=== PATIENT | female | born 1990 | race Hispanic/Latino ===

== ENCOUNTER → 2016-12-07 | Outpatient (CLI) | payer BC ==
[~2016-12-07] MED LIST: AMOX250S5 PO; DEXAINTSOL PO; HYDR-3714 PO; HYDR15SO8 PO; PREN1TAB39; SILV25CR TP; TETRACAINESUCKERS MT
--- NOTE | 2016-12-07 13:41 | Diagnostic Imaging Report ---
PROCEDURE: MRI left joint lower extremity without contrast. TECHNIQUE: Multiplanar, multisequence non contrast-enhanced MRI of the left lower extremity was accomplished. INDICATION: Medial left knee pain. FINDINGS: There is minimal amount of suprapatellar fluid probably physiologic. There is no Benitez's cyst. Extensor mechanism is normal. The ACL and the PCL appear normal. The posterior horn of the medial meniscus demonstrate intrasubstance increased signal that does not appear to extend to the meniscus surface suggestive of myxoid degeneration with no definitive tear. No tear is seen in the lateral meniscus with likely degenerative signal also seen in the posterior horn, less prominent than the medial meniscus. The MCL and lateral collateral ligament complex appear intact. The muscles around the knee have normal signal and bulk. The bone marrow signal is within normal limits. The articular cartilage appears unremarkable. 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 Dictated by: Dictated on workstation # [id number]
== END ==
LOC: RAD 10:04
PROVIDERS: ATTEND Orthopaedic Surgery
DX: M23.8X2 Other internal derangements of left knee (principal)
CPT/HCPCS: 73721

== ENCOUNTER 2017-02-16 08:00 | Outpatient (RCR) | payer BC, OTHER | END 2017-03-20 | disposition home or self-care (01) | PROVIDERS: ATTEND Nurse Practitioner Family | DX: M25.562 Pain in left knee (principal) ==

== ENCOUNTER 2018-01-09 05:40 | Outpatient (CLI) | payer BC ==
[~2018-01-09] VITALS: Ht 160 cm; Wt 63.5 kg
[2018-01-11] MEDS ORDERED: IBUP-1773 PO (12:14)
[2018-01-11] MEDS ORDERED: HYDR-757 PO (12:14)
== END 2018-01-09 10:12 ==
LOC: PREOP 05:40
PROVIDERS: ATTEND Obstetrics & Gynecology
DX: Z01.818 Encounter for other preprocedural examination (principal); D06.9 Carcinoma in situ of cervix, unspecified

== ENCOUNTER 2018-01-11 10:57 | Day surgery (SDC) | payer BC, OTHER ==
[~2018-01-11] VITALS: Ht 160 cm; Wt 63.5 kg
[2018-01-11] MEDS ORDERED: LACTATED RINGERS 1,000 ML IV PRN (11:09)
[2018-01-11 11:15] VITALS: BP 126/71
[2018-01-11] MEDS ORDERED: MIDAZOLAM 2 MG/2 ML (VERSED) VIAL ONE ×2 (11:39→12:26)
[2018-01-11] MEDS ORDERED: MIDAZOLAM 2 MG/2 ML (VERSED) VIAL IM ONE (11:45)
[2018-01-11 11:48] LABS: BASOPHILS % (AUTO) 0 % (0-10); EOSINOPHILS # (AUTO) 0.2 10^3/uL (0.0-0.3); EOSINOPHILS % (AUTO) 3 % (0-10); HEMATOCRIT 39 % (35-52); HEMOGLOBIN 13.2 G/DL (11.5-16.0); LYMPHOCYTES # (AUTO) 2.2 X 10^3 (1.0-4.0); LYMPHOCYTES % (AUTO) 34 % (12-44); MEAN CORPUSCULAR HEMOGLOBIN 28 PG (25-34); MEAN CORPUSCULAR HGB CONC 34 G/DL (32-36); MEAN CORPUSCULAR VOLUME 81 FL (80-99); MEAN PLATELET VOLUME 11.2 FL (7.4-10.4); MONOCYTES # (AUTO) 0.5 X 10^3 (0.0-1.0); MONOCYTES % (AUTO) 7 % (0-12); NEUTROPHILS # (AUTO) 3.6 X 10^3 (1.8-7.8); NEUTROPHILS % (AUTO) 55 % (42-75); PLATELET COUNT 254 10^3/uL (130-400); RED BLOOD COUNT 4.79 10^6/uL (4.35-5.85); WHITE BLOOD COUNT 6.5 10^3/uL (4.3-11.0)
--- NOTE | 2018-01-11 12:10 | Progress Note-Pre Operative ---
Pre-Operative Progress Note H&P Reviewed The H&P was reviewed, patient examined and no changes noted. 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
--- NOTE | 2018-01-11 12:11 | Discharge Inst-Women's Service ---
Discharge Inst-Women's Serv Depart Medication/Instructions New, Converted or Re-Newed RX: RX on Chart Consults/Follow Up Additional Follow Up: Yes Orders/Referrals Dr. Parekh in 2-3 weeks Activity Activity: Activity as Tolerated Driving Instructions: You May Drive (do not drive while taking hydrocodone) NO SMOKING: NO SMOKING Nothing Inside Vagina: No Douching, No [place], No Tampons Diet Discharge Diet: No Restrictions Symptoms to Report to : Bleeding Excessive, Pain Increased, Fever Over 101 Degrees F, Vaginal Bleeding Increase, Questions/Concerns For Any Problems or Questions: Contact Your Physician Skin/Wound Care Bathing Instructions: Shower (x 3 weeks) ELKE PAREKH DO January 11, 2018 12:11 pm
[2018-01-11] MEDS ORDERED: D5 LR IV SOLUTION 1,000 ML IV SCH (12:12)
[2018-01-11] MEDS ORDERED: IBUP-1773 PO (12:14)
[2018-01-11] MEDS ORDERED: HYDR-757 PO (12:14)
[2018-01-11] MEDS ORDERED: KETOROLAC 30 MG/ML VIAL IVP ONE (12:15)
[2018-01-11] MEDS ORDERED: ONDANSETRON 4 MG/2 ML (SDV) Z0FRAN IVP PRN ×3 (12:15→13:45)
[2018-01-11] MEDS ORDERED: proPOfol 200 MG/20 ML (DIPRIVAN) VIAL IV ONE (12:25)
[2018-01-11] MEDS ORDERED: SEVOFLURANE (ULTANE) 15 ML INHAL SOLN ONE (12:25)
[2018-01-11] MEDS ORDERED: ONDANSETRON 4 MG/2 ML (SDV) Z0FRAN ONE (12:25)
[2018-01-11] MEDS ORDERED: LIDOCAINE PF 2% 5 ML (XYLOCAINE) VIAL ONE (12:25)
[2018-01-11] MEDS ORDERED: fentaNYL INJECTION 100 MCG/2 ML AMP ONE (12:25)
[2018-01-11] MEDS ORDERED: DEXAMETHASONE 10 MG/ML (DECADRON) 1 ML VIAL ONE (12:25)
[2018-01-11] MEDS ORDERED: HYDROmorphone 1 MG/ML (DILAUDID) 1 ML SYRINGE IV PRN (12:30)
[2018-01-11] MEDS ORDERED: morphine INJ 10 MG/ML 1ML (SYR OR VIAL) IVP PRN ×2 (12:30→13:45)
[2018-01-11] MEDS ORDERED: MEPERIDINE (DEMEROL) INJ 50 MG/ML IVP PRN ×2 (12:30→13:45)
[2018-01-11] MEDS ORDERED: BUP/EPI 0.5% 1:200,000 (SENSORCAINE) 30 ML VIAL ONE (12:33)
[2018-01-11] MEDS ORDERED: BUPIVACAINE 0.25% 30 ML (SENSORCAINE) VIAL ONE (12:58)
--- NOTE | 2018-01-11 14:18 | Anesthesia-General Post-Op ---
General Patient Condition Mental Status/LOC: Same as Preop Cardiovascular: Satisfactory Nausea/Vomiting: Absent Respiratory: Satisfactory Pain: Controlled Complications: Absent Post Op Complications Complications None Follow Up Care/Instructions Patient Instructions None needed. Anesthesia/Patient Condition Patient Condition Patient is doing well, no complaints, stable vital signs, no apparent adverse anesthesia problems. No complications reported per nursing. [place] [facility] [place]: No ANNIE BOLAÑOS CRNA January 11, 2018 14:18
[2018-01-11 14:20] VITALS: BP 144/88
[2018-01-11 15:20] VITALS: BP 129/85
--- NOTE | 2018-01-11 21:07 | OPERATIVE REPORT ---
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 PROCEDURE: D and C with cold knife conization. SURGEON: Elke Parekh DO ANESTHESIA: General endotracheal. ESTIMATED BLOOD LOSS: Minimal. URINE OUTPUT: 100 mL clear at the start of the procedure. FLUIDS: One liter lactate Ringer solution. FINDINGS: A normal appearing cervix with multiple nabothian cysts, moderate amount of endometrial tissue collected. SPECIMENS SENT: Endometrial curettings and cold knife conization biopsy of the cervix. INDICATION for procedure: This patient is [id number] and [facility] finding of AIS on colposcopic evaluation. She also had some findings of KIM 2, moderate dysplasia. I discussed with the patient my concern with AIS diagnosis is that there can sometimes be skipping lesions occurring within the uterus as well as we need to rule out the possibility of invasive carcinoma. I discussed with her proceeding with a conization biopsy of the cervix as well as a D and C to ensure there was no spread into the endometrium. Risk of this procedure was discussed with the patient in detail including risk of bleeding, infection, damage to surrounding structures including, but not limited to bowel, bladder, ureter, kidneys, risk of postoperative bleeding involved with a conization, risk of postoperative thromboembolic events were all discussed with the patient in detail. After all of her questions were answered, consent was obtained in the preoperative area and the patient was taken to the operating room. OPERATIVE REPORT IN DETAIL: Once in the operating room, general anesthesia was found to be adequate, placed in dorsal lithotomy position, prepped and draped in normal sterile fashion. The bladder was first emptied using straight catheterization. I then placed a weighted speculum into the patient's vagina after a bimanual examination is performed. A right angle retractor was used to visualize the cervix. It was grasped at the 12 o'clock position using a long Allis clamp. I then performed paracervical block at 3 and 9 o'clock positions using 5 mL of 0.25% Marcaine. I injected at each site. Care was taken to aspirate before injecting. After this was done, I then placed a uterine sound into the endometrial cavity, which sounded to approximately 7 cm. I then gently dilated the cervix inheriting the dilators to maximum dilatation of approximately 9 mm, at which point, I performed a gentle curettage with endometrial curettings and collected this curettage as endometrial curettings. I then placed two lateral sutures at 3 and 9 o'clock positions using 2-0 Vicryl suture to help prevent excessive amount of bleeding with the cold knife conization. I then also injected stromal area of the cervix using 0.5% Marcaine with epinephrine to prevent intraoperative bleeding as well. I then soaked the cervix and Lugol solution and removed excess Lugol solution from the vagina. This allowed me to identify the transformation zone. I then took a knife and incised the entire transformation zone within 2 to 3 mm of a margin around the entire transformation zone. The remainder of the cone biopsy was taken using curved Waite scissors taking a large portion of the endocervix as well. Once this was done, the specimens were removed and sent as cervical cone biopsy. I then used ball cautery to cauterize my vascular bed and transection planes. After this was done, I placed Sturmdorf stitches in four quadrants of the cervix using 2-0 Vicryl suture and then I applied Monsel's to the endocervix as well. There was no active bleeding noted from any of my dissection planes after all this was done. The patient tolerated the procedure well and sent to the recovery area in stable condition. Lap and sponge count was correct at the end of the procedure. Instrument count was correct as well. Job ID: [id number] DocumentID: [id number] Dictated Date: 01/11/2018 13:39:13 Photogrammetry Airplane Pilot Date: 01/11/2018 21:07:11 Dictated By: ELKE PAREKH DO
== END 2018-01-11 15:20 | disposition home or self-care (01) ==
LOC: SDC 10:57
PROVIDERS: ATTEND Obstetrics & Gynecology
DX: D06.9 Carcinoma in situ of cervix, unspecified (principal); N88.8 Other specified noninflammatory disorders of cervix uteri
CPT/HCPCS: 36415; 84703; 85025; 86850; 86900; 86901; 87081; 88305; 88307; 88342; 94664

== ENCOUNTER 2018-06-09 21:20 | Emergency (ER) | payer OTHER ==
[~2018-06-09] VITALS: Ht 167.6 cm; Wt 80.7 kg
[~2018-06-09 21:20] MED LIST changes: +HYDR-4226 PO; +IBUP-1773 PO
[2018-06-09 22:14] LABS: BILIRUBIN,URINE NEGATIVE (NEGATIVE); CLARITY,URINE SLIGHTLY CLOUDY; COLOR,URINE RED; GLUCOSE, URINE (UA) NEGATIVE (NEGATIVE); KETONES,URINE NEGATIVE (NEGATIVE); LEUKOCYTE ESTERASE ,URINE 2+ (NEGATIVE); NITRITE,URINE NEGATIVE (NEGATIVE); PH,URINE 7 (5-9); PROTEIN,URINE 2+ (NEGATIVE); UROBILINOGEN,URINE 1 MG/DL (NORMAL)
[2018-06-09 22:21] LABS: RBC,URINE TNTC /HPF
[2018-06-09 22:22] LABS: BACTERIA,URINE TRACE /HPF
[2018-06-09] MEDS ORDERED: NS IV 1000 ML 1,000 ML IV ONE (22:26)
[2018-06-09 22:54] LABS: BASOPHILS % (AUTO) 0 % (0-10); EOSINOPHILS # (AUTO) 0.1 10^3/uL (0.0-0.3); EOSINOPHILS % (AUTO) 1 % (0-10); HEMATOCRIT 36 % (35-52); LYMPHOCYTES # (AUTO) 2.2 X 10^3 (1.0-4.0); LYMPHOCYTES % (AUTO) 21 % (12-44); MEAN CORPUSCULAR HEMOGLOBIN 27 PG (25-34); MEAN CORPUSCULAR HGB CONC 34 G/DL (32-36); MEAN CORPUSCULAR VOLUME 81 FL (80-99); MEAN PLATELET VOLUME 11.2 FL (7.4-10.4); MONOCYTES # (AUTO) 0.9 X 10^3 (0.0-1.0); MONOCYTES % (AUTO) 8 % (0-12); NEUTROPHILS # (AUTO) 7.1 X 10^3 (1.8-7.8); NEUTROPHILS % (AUTO) 70 % (42-75); PLATELET COUNT 219 10^3/uL (130-400); RED CELL DISTRIBUTION WIDTH 14.1 % (10.0-14.5); WHITE BLOOD COUNT 10.2 10^3/uL (4.3-11.0)
[2018-06-09 23:13] LABS: ALANINE AMINOTRANSFERASE 15 U/L (0-55); ALKALINE PHOSPHATASE 42 U/L (40-136); BILIRUBIN,TOTAL 0.9 MG/DL (0.1-1.0); BUN/CREATININE RATIO 9; CALCIUM 9.2 MG/DL (8.5-10.1); CARBON DIOXIDE 21 MMOL/L (21-32); CHLORIDE 109 MMOL/L (98-107); CREATININE SERUM 0.77 MG/DL (0.60-1.30); GFR ESTIMATED > 60; GLUCOSE 105 MG/DL (70-105); LIPASE 6 U/L (8-78); POTASSIUM 3.9 MMOL/L (3.6-5.0); SODIUM 140 MMOL/L (135-145); TOTAL PROTEIN 7.1 GM/DL (6.4-8.2)
--- NOTE | 2018-06-10 01:04 | ED Abdominal Pain ---
General Chief Complaint: Abdominal/GI Problems Stated Complaint: PAIN RT SIDE OF ABD FOR 24 HOURS,VOMITTING Nursing Triage Note: abdominal pain, n/v Sepsis Screen: Possible Sepsis Risk Source of Information: Patient Exam Limitations: No Limitations History of Present Illness Date Seen by Provider: Jun 09, 2018 Time Seen by Provider: 21:23 Initial Comments This 28 year old young lady presents to the ER by private vehicle with concerns about intense right sided abdominal pain that started last night. Her pain is generalized but more prominent on the right side. She reports she has difficulty standing straight due to pain. It does hurt to walk. She denies fever but has had chills. Her last menstrual period is now. She had vomiting and diarrhea last night. Now she feels constipated. Her last solid intake was at 11:00. Her last water was at 20:00. She feels like she wants to cough but holds his back because of pain. Allergies and Home Medications Allergies Coded Allergies: No Known Drug Allergies (Unverified , 04/14/09) Home Medications Hydrocodone/Acetaminophen 1 Each Tablet, 1-2 TAB PO Q4H PRN for PAIN-MODERATE Prescribed by: ELKE PAREKH on 01/11/18 1214 Ibuprofen 600 Mg Tablet, 600 MG PO Q6H Prescribed by: ELKE PAREKH on 01/11/18 1214 Patient Home Medication List Home Medication List Reviewed: Yes Review of Systems Review of Systems Constitutional: see HPI EENTM: No Symptoms Reported Respiratory: See HPI Cardiovascular: No Symptoms Reported Gastrointestinal: See HPI Genitourinary: No Symptoms Reported Musculoskeletal: no symptoms reported Skin: no symptoms reported Psychiatric/Neurological: No Symptoms Reported Endocrine: No Symptoms Reported Hematologic/Lymphatic: No Symptoms Reported Past Isoxslr-Ysrsbz-Pzwpvm Hx Patient Social History Alcohol Use: Occasionally Uses Recreational Drug Use: No Smoking Status: Never a Smoker 2nd Hand Smoke Exposure: No Recent Foreign Travel: No Contact w/Someone Who Travel: No Recent Infectious Disease Expo: No Recent Hopitalizations: No Immunizations Up To Date Tetanus Booster (TDap): Unknown PED Vaccines UTD: No Seasonal Allergies Seasonal Allergies: No Past Medical History Surgeries: Yes (ovarian surgery) Tonsillectomy Respiratory: No Cardiac: No Neurological: No : No Last Menstrual Period: Jun 09, 2018 Reproductive Disorders: Yes (AIS of cervix) Genitourinary: No Gastrointestinal: No Musculoskeletal: No Endocrine: No HEENT: No Tonsilitis Cancer: No Psychosocial: No Integumentary: No Blood Disorders: No Adverse Reaction/Blood Tranf: No Family Medical History No Pertinent Family Hx Physical Exam Vital Signs Vital Signs - First Documented 06/09/18 21:50 Temp 101.0 Pulse 95 Resp 18 B/P (MAP) 132/65 (87) Pulse Ox 98 O2 Delivery Room Air Capillary Refill : Less Than 3 Seconds Height/Weight/BMI Height: 5'6.00" Weight: 178lbs. 0.0oz. [id number]; 24.8 BMI Method:Stated General Appearance: WD/WN, mild distress HEENT: normal ENT inspection, pharynx normal Neck: normal inspection Respiratory: lungs clear, normal breath sounds, no respiratory distress, no accessory muscle use Cardiovascular: regular rate, rhythm, no edema, no murmur Gastrointestinal: soft, abnormal bowel sounds (decreased), tenderness ( generalized but more prominent on the right), other (negative psoas. Positive tenderness to percussion. Negative Rovsing) Extremities: normal inspection, no pedal edema Neurologic/Psychiatric: regional forester II-XII nml as tested, no motor/sensory deficits, alert, normal mood/affect, oriented x 3 Skin: normal color, warm/dry Progress/Results/Core Measures Results/Orders Lab Results Laboratory Tests Test 06/09/18 22:00 06/09/18 22:45 Range/Units Urine Color RED H Urine Clarity SLIGHTLY CLOUDY Urine pH 7 5-9 Urine Specific Ulysses 1.010 L 1.016-1.022 Urine Protein 2+ H NEGATIVE Urine Glucose (UA) NEGATIVE NEGATIVE Urine Ketones NEGATIVE NEGATIVE Urine Nitrite NEGATIVE NEGATIVE Urine Bilirubin NEGATIVE NEGATIVE Urine Urobilinogen 1 NORMAL MG/DL Urine Leukocyte Esterase 2+ H NEGATIVE Urine RBC (Auto) 5+ H NEGATIVE Urine RBC TNTC H /HPF Urine WBC 2-5 /HPF Urine Squamous Epithelial Cells 2-5 /HPF Urine Crystals NONE /LPF Urine Bacteria TRACE /HPF Urine Casts NONE /LPF Urine Mucus NEGATIVE /LPF Urine Culture Indicated NO White Blood Count 10.2 4.3-11.0 10^3/uL Red Blood Count 4.40 4.35-5.85 10^6/uL Hemoglobin 12.0 11.5-16.0 G/DL Hematocrit 36 35-52 % Mean Corpuscular Volume 81 80-99 FL Mean Corpuscular Hemoglobin 27 25-34 PG Mean Corpuscular Hemoglobin Concent 34 32-36 G/DL Red Cell Distribution Width 14.1 10.0-14.5 % Platelet Count 219 130-400 10^3/uL Mean Platelet Volume 11.2 H 7.4-10.4 FL Neutrophils (%) (Auto) 70 42-75 % Lymphocytes (%) (Auto) 21 12-44 % Monocytes (%) (Auto) 8 0-12 % Eosinophils (%) (Auto) 1 0-10 % Basophils (%) (Auto) 0 0-10 % Neutrophils # (Auto) 7.1 1.8-7.8 X 10^3 Lymphocytes # (Auto) 2.2 1.0-4.0 X 10^3 Monocytes # (Auto) 0.9 0.0-1.0 X 10^3 Eosinophils # (Auto) 0.1 0.0-0.3 10^3/uL Basophils # (Auto) 0.0 0.0-0.1 10^3/uL Sodium Level 140 135-145 MMOL/L Potassium Level 3.9 3.6-5.0 MMOL/L Chloride Level 109 H 98-107 MMOL/L Carbon Dioxide Level 21 21-32 MMOL/L Anion Gap 10 5-14 MMOL/L Blood Urea Nitrogen 7 7-18 MG/DL Creatinine 0.77 0.60-1.30 MG/DL Estimat Glomerular Filtration Rate > 60 BUN/Creatinine Ratio 9 Glucose Level 105 70-105 MG/DL Calcium Level 9.2 8.5-10.1 MG/DL Corrected Calcium 9.2 8.5-10.1 MG/DL Total Bilirubin 0.9 0.1-1.0 MG/DL Aspartate Amino Transf (AST/SGOT) 12 5-34 U/L Alanine Aminotransferase (ALT/SGPT) 15 0-55 U/L Alkaline Phosphatase 42 40-136 U/L Total Protein 7.1 6.4-8.2 GM/DL Albumin 4.0 3.2-4.5 GM/DL Lipase 6 L 8-78 U/L Serum Test, Qualitative NEGATIVE NEGATIVE My Orders Orders - HANY COLVIN MD Ua Culture If Indicated (06/09/18 21:23) Cbc With Automated Diff (06/09/18 22:26) Comprehensive Metabolic Panel (06/09/18 22:26) Hcg,Qualitative Serum (06/09/18 22:26) Lipase (06/09/18 22:26) Saline Lock/Iv-Start (06/09/18 22:26) Ns Iv 1000 Ml (Sodium Chloride 0.9%) (06/09/18 22:26) Ct Abd/Pelv W (Appendicitis) (06/09/18 23:15) Ketorolac Injection (Toradol Injection) (06/10/18 01:15) Medications Given in ED Vital Signs/I&O 06/09/18 06/10/18 21:50 01:15 Temp 101.0 98.9 Pulse 95 88 Resp 18 16 B/P (MAP) 132/65 (87) 130/62 (84) Pulse Ox 98 99 O2 Delivery Room Air Room Air Blood Pressure Mean: 87 Progress Progress Note : Progress Note Patient initially declined pain medication. After review of labs we discussed further options for workup. I discussed the risks and benefits of CT imaging including the risk of radiation exposure and contrast allergy. Patient and I were both concerned about possible appendicitis. After explanation of risks and benefits patient elected to proceed with CT imaging. CT revealed no appendicitis. She did have a prominent structure consistent with ovarian cyst on the right. Fever resolved without treatment. Patient was felt to most likely have a viral illness given the vomiting and diarrhea yesterday. Patient was hydrated, given Toradol, and dismissed with return precautions. Departure Impression Primary Impression: Right lower quadrant pain Additional Impressions: Right ovarian cyst Fever Qualified Codes: R50.9 - Fever, unspecified Nausea & vomiting Qualified Codes: R11.2 - Nausea with vomiting, unspecified Disposition: 01 HOME, SELF-CARE Condition: Improved Admissions Decision to Admit Reason: Admit from ER (General) Departure-Patient Inst. Decision time for Depature: 01:00 Referrals: NAVIN FLORES DO (PCP) Primary Care Physician Patient Instructions: Acute Abdomen (Belly Pain), Adult (DC), Ovarian Cyst (DC) Add. Discharge Instructions: Drink plenty of clear liquids. Gradually advance your diet as tolerated. You may take ibuprofen up to 600 mg every 6 hours as needed for pain. Add Tylenol (acetaminophen) up to 1000 mg every 6 hours as needed for additional pain relief. Return to care if you have worsening symptoms. All discharge instructions reviewed with patient and/or family. Voiced understanding. HANY COLVIN MD Jun 10, 2018 01:04
[2018-06-10 01:15] VITALS: BP 130/62
[2018-06-10] MEDS ORDERED: KETOROLAC 30 MG/ML VIAL IVP ONE (01:15)
--- NOTE | 2018-06-10 07:09 | Diagnostic Imaging Report ---
PROCEDURE: CT abdomen and pelvis with contrast, rule out appendicitis. TECHNIQUE: Multiple contiguous axial images were obtained through the abdomen and pelvis after the administration of intravenous contrast. INDICATION: Right abdominal pain No focal hepatic or splenic lesion is identified. Gallbladder, pancreas and adrenal glands are unremarkable. No renal abnormality is seen. There are mildly prominent lymph nodes in the mesentery. These are most pronounced in the right lower quadrant. Appendix is unremarkable in its appearance. Partially opacified urinary bladder has a normal appearance. There appears to be cystic enlargement of the ovaries greater on the right. Right ovary and cyst in aggregate measure approximately 5.4 x 4.1 cm. No significant free fluid is identified and there is no evidence of organized fluid collection. There may be mild edema and/or inflammation in the lower abdominal mesenteric fat. IMPRESSION: Cystic enlargement of the ovaries, greater on the right. This may contribute to patient's symptoms and consideration could be given to pelvic ultrasonography. Component of pelvic inflammatory disease is not excluded. Mildly prominent mesenteric lymph nodes may reflect adenitis. Dictated by: Dictated on workstation # [id number]
== END 2018-06-10 01:15 | disposition home or self-care (01) ==
LOC: EDUNIT# 21:20 → ER 21:22
DX: N83.202 Unspecified ovarian cyst, left side (principal); R11.2 Nausea with vomiting, unspecified; Z90.89 Acquired absence of other organs
CPT/HCPCS: 36415; 74177; 80053; 81000; 83690; 84703; 85025

== ENCOUNTER 2019-06-27 19:34 | Emergency (ER) | payer OTHER ==
[~2019-06-27] VITALS: Ht 170 cm; Wt 71.8 kg
[2019-06-27] MEDS ORDERED: diphenhydrAMINE 50 MG/ML INJ (BENADRYL) IVP ONE (19:45)
[2019-06-27] MEDS ORDERED: methylPREDNISolone 125 MG (Solu-MEDROL) VIAL IVP ONE (19:45)
[2019-06-27] MEDS ORDERED: FAMOTIDINE 20MG/2ML IV (PEPCID) IVP ONE (19:45)
--- NOTE | 2019-06-27 19:54 | ED Integumentary General ---
General Chief Complaint: Allergic Reaction Stated Complaint: HIVES Source: patient Exam Limitations: no limitations History of Present Illness Date Seen by Provider: Jun 27, 2019 Time Seen by Provider: 19:50 Initial Comments To ER with reports of itchy hives that she awakened with this morning. 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 She works for [employer] and was seen by their walk-in clinic this afternoon, was given a shot of something, she is not sure what. In addition she's been taking Benadryl one tablet every 4 hours most recently one hour ago and a prescription for prednisone 40 mg daily for 3 days. Timing/Duration: constant Severity: moderate Location: generalized Possible Cause: no cause identified Associated Symptoms: rash Allergies and Home Medications Allergies Coded Allergies: No Known Drug Allergies (Unverified , 04/14/09) Home Medications Hydrocodone/Acetaminophen 1 Each Tablet, 1-2 TAB PO Q4H PRN for PAIN-MODERATE Prescribed by: ELKE PAREKH on 01/11/18 1214 Ibuprofen 600 Mg Tablet, 600 MG PO Q6H Prescribed by: ELKE PAREKH on 01/11/18 1214 Patient Home Medication List Home Medication List Reviewed: Yes Review of Systems Review of Systems Constitutional: see HPI EENTM: see HPI Respiratory: no symptoms reported Cardiovascular: no symptoms reported Genitourinary: no symptoms reported Musculoskeletal: no symptoms reported Skin: see HPI Psychiatric/Neurological: No Symptoms Reported Endocrine: No Symptoms Reported Past [id number]-Hgdonf-Awkodt Hx Patient Social History 2nd Hand Smoke Exposure: No Recent Foreign Travel: No Contact w/Someone Who Travel: No Recent Hopitalizations: No Immunizations Up To Date Tetanus Booster (TDap): Unknown PED Vaccines UTD: No Seasonal Allergies Seasonal Allergies: No Past Medical History Surgeries: Yes (ovarian surgery) Tonsillectomy Respiratory: No Cardiac: No Neurological: No Reproductive Disorders: Yes (AIS of cervix) Genitourinary: No Gastrointestinal: No Musculoskeletal: No Endocrine: No HEENT: No Tonsilitis Cancer: No Psychosocial: No Integumentary: No Blood Disorders: No Adverse Reaction/Blood Tranf: No Family Medical History No Pertinent Family Hx Physical Exam Vital Signs Capillary Refill : General Appearance: WD/WN, no apparent distress HEENT: PERRL/EOMI, normal ENT inspection Gastrointestinal: normal bowel sounds, non tender, soft Neurologic/Psychiatric: alert, normal mood/affect, oriented x 3 Skin: normal color, warm/dry Skin Problem Location: other (minor urticarial type rash/wheals to the torso and extremities, these areas are small, quarter-sized) Skin Problem Character: urticarial Progress/Results/Core Measures Results/Orders My Orders Orders - ASHANTI CAMPBELL APRN Methylprednisolone Sod Succ (Solu-Medrol (06/27/19 19:45) Diphenhydramine Injection (Benadryl Inje (06/27/19 19:45) Famotidine Injection (Pepcid Injection) (06/27/19 19:45) Ed Iv/Invasive Line Start (06/27/19 19:43) Medications Given in ED Current Medications Medications Dose Ordered Sig/Juan Carlos Route Start Time Stop Time Status Last Admin Dose Admin Diphenhydramine HCl 25 mg ONCE ONCE IVP 06/27/19 19:45 06/27/19 19:46 DC 06/27/19 19:47 25 MG Famotidine 20 mg ONCE ONCE IVP 06/27/19 19:45 06/27/19 19:46 DC 06/27/19 19:47 20 MG Methylprednisolone Sodium Succinate 125 mg ONCE ONCE IVP 06/27/19 19:45 06/27/19 19:46 DC 06/27/19 19:47 125 MG Departure Impression Primary Impression: Urticaria Disposition: 01 HOME, SELF-CARE Condition: Stable Departure-Patient Inst. Decision time for Depature: 19:54 Referrals: NO,LOCAL PHYSICIAN (PCP/Family) Primary Care Physician Patient Instructions: ASHANTI Murcia DC, APRN Jun 27, 2019 19:54 POS
[2019-06-27 20:32] VITALS: BP 149/79
== END 2019-06-27 20:39 | disposition home or self-care (01) ==
LOC: EDUNIT# 19:34 → ER 19:35
DX: L50.9 Urticaria, unspecified (principal); Z90.89 Acquired absence of other organs

== ENCOUNTER 2019-06-28 06:23 | Emergency (ER) | payer OTHER ==
[~2019-06-28] VITALS: Ht 167 cm; Wt 71.8 kg
[2019-06-28] MEDS ORDERED: NS IV 1000 ML 1,000 ML IV STA (07:06)
[2019-06-28] MEDS ORDERED: diphenhydrAMINE 50 MG/ML INJ (BENADRYL) IV STA (07:06)
[2019-06-28] MEDS ORDERED: FAMOTIDINE 20MG/2ML IV (PEPCID) IV STA (07:06)
[2019-06-28] MEDS ORDERED: predniSONE 20 MG TAB PO ONE (07:15)
--- NOTE | 2019-06-28 07:42 | ED Integumentary General ---
General Chief Complaint: Allergic Reaction Stated Complaint: ALLERGIC RXN Nursing Triage Note: woke up this am at 0100 with hives again. took 25 mg of oral benadryl at home. Source: patient, old records Exam Limitations: no limitations (VIRGINIE LONG) History of Present Illness Date Seen by Provider: Jun 28, 2019 Time Seen by Provider: 06:47 Timing/Duration: yesterday Severity: moderate Location: generalized Possible Cause: exposure to allergen, foods Modifying Factors: improves with antihistamine (though sx are controlled for a few hrs only), improves with prednisone (though sx are controlled for a few hrs only) Associated Symptoms: hives, rash, other (some airway contrsiction ) (VIRGINIE LONG) Initial Comments Here with return of generalized hives overnight. Seen yesterday and given medications including famotidine and diphenhydramine. Overall she had improvement of symptoms while in the emergency department. Overnight, she had return of hives. Denies breathing problems, abdominal pain, nausea or weakness. She did take diphenhydramine at about 1 AM the symptoms persist. States that the urticaria does result and itching. Initial onset after having a mixed drink at a restaurant. She does have cinnamon allergy. Timing/Duration: yesterday Severity: moderate Location: generalized Modifying Factors: improves with antihistamine (though sx are controlled for a few hrs only), improves with prednisone (though sx are controlled for a few hrs only) Associated Symptoms: hives, rash, other (some airway contrsiction ) (Adrian CAMARGO MD) Allergies and Home Medications Allergies Coded Allergies: cinnamon (Verified Allergy, Unknown, Hives, 06/28/19) Home Medications Hydrocodone/Acetaminophen 1 Each Tablet, 1-2 TAB PO Q4H PRN for PAIN-MODERATE Prescribed by: ELKE PAREKH on 01/11/18 1214 Ibuprofen 600 Mg Tablet, 600 MG PO Q6H Prescribed by: ELKE PAREKH on 01/11/18 1214 Patient Home Medication List Home Medication List Reviewed: Yes (BARBARA CAMARGO MD) Review of Systems Review of Systems Constitutional: No chills, No diaphoresis, No dizziness, No fever, No malaise EENTM: throat pain, throat swelling; No ear discharge, No hearing loss, No eye pain, No tearing, No hoarseness, No nose congestion, No nose pain Respiratory: No cough, No dyspnea on exertion; short of breath (earlier this AM "around 0100") Cardiovascular: No chest pain, No edema, No palpitations Gastrointestinal: no symptoms reported Genitourinary: no symptoms reported Musculoskeletal: no symptoms reported Skin: pruritus, rash Psychiatric/Neurological: No Symptoms Reported Endocrine: No Symptoms Reported Hematologic/Lymphatic: No Symptoms Reported (VIRGINIE LONG) All Other Systems Reviewed Negative Unless Noted: Yes (BARBARA CAMARGO MD) Past Lyrqgqz-Pbjaxp-Pesewu Hx Past Med/Social Hx: Reviewed Nursing Past Med/Soc Hx (BARBARA CAMARGO MD) Patient Social History Alcohol Use: Occasionally Uses Recreational Drug Use: No 2nd Hand Smoke Exposure: No Recent Foreign Travel: No Contact w/Someone Who Travel: No Recent Infectious Disease Expo: No Recent Hopitalizations: No Physical Abuse: No Sexual Abuse: No Mistreated: No Fear: No (VIRGINIE LONG) Immunizations Up To Date Tetanus Booster (TDap): Unknown PED Vaccines UTD: No (VIRGINIE LONG) Seasonal Allergies Seasonal Allergies: No (VIRGINIE LONG) Past Medical History Surgeries: Yes (ovarian surgery) Tonsillectomy Respiratory: No Cardiac: No Neurological: No : No Last Menstrual Period: Jun 09, 2019 Reproductive Disorders: Yes (AIS of cervix) Genitourinary: No Gastrointestinal: No Musculoskeletal: No Endocrine: No HEENT: No Tonsilitis Cancer: No Psychosocial: No Integumentary: No Blood Disorders: No Adverse Reaction/Blood Tranf: No (VIRGINIE LONG MED SEDA) Family Medical History Reviewed Nursing Family Hx (BARBARA CAMARGO MD) No Pertinent Family Hx (VIRGINIE LONG) Physical Exam Vital Signs Vital Signs - First Documented 06/28/19 06:25 Temp 36.2 Pulse 97 Resp 20 B/P (MAP) 135/81 (99) Pulse Ox 100 (BARBARA CAMARGO MD) Vital Signs Capillary Refill : Less Than 3 Seconds ([facility]) General Appearance: WD/WN, no apparent distress HEENT: normal ENT inspection, TMs normal, other (There is few areas of localized redness to the left and right of rubi palate and pharynx but no swelling ) Neck: non-tender, full range of motion, supple, normal inspection, lymphaden opathy (R), lymphadenopathy (L) Cardiovascular: normal peripheral pulses, regular rate, rhythm, no edema, no gallop, no JVD, no murmur Respiratory: chest non-tender, lungs clear, normal breath sounds, no respirat ory distress, no accessory muscle use; No wheezing Gastrointestinal: normal bowel sounds, non tender, soft, no organomegaly, no pulsatile mass Back: no CVA tenderness, no vertebral tenderness, other (urtecharia present, generalized) Extremities: non-tender, normal inspection, no pedal edema, no calf tenderness, normal capillary refill, other (urtecharia present, generalized, bilat UE/LE) Neurologic/Psychiatric: alert, oriented x 3 Skin: normal color, rash (generalized urtecharial rash) Skin Problem Location: generalized Skin Problem Character: erythema, patchy, rash, urticarial Lymphatic: no adenopathy ([facility]) General Appearance: WD/WN, no apparent distress Neck: full range of motion, supple Cardiovascular: regular rate, rhythm, no murmur Respiratory: lungs clear, normal breath sounds Gastrointestinal: non tender, soft Neurologic/Psychiatric: alert, oriented x 3 Skin: warm/dry, rash (generalized urtecharial rash) Skin Problem Location: generalized Skin Problem Character: patchy, urticarial (BARBARA CAMARGO MD) Progress/Results/Core Measures Results/Orders Lab Results Laboratory Tests Test 06/28/19 07:03 Range/Units Group A Streptococcus Screen NEGATIVE NEGATIVE (BARBARA CAMARGO MD) My Orders Orders - BARBARA CAMARGO MD Ed Iv/Invasive Line Start (06/28/19 07:06) Diphenhydramine Injection (Benadryl Inje (06/28/19 07:06) Ns Iv 1000 Ml (Sodium Chloride 0.9%) (06/28/19 07:06) Famotidine Injection (Pepcid Injection) (06/28/19 07:06) Rapid Strep A Screen (06/28/19 07:06) Prednisone Tablet (Deltasone Tablet) (06/28/19 07:15) (BARBARA CAMARGO MD) Medications Given in ED Current Medications Medications Dose Ordered Sig/Juan Carlos Route Start Time Stop Time Status Last Admin Dose Admin Prednisone 60 mg ONCE ONCE PO 06/28/19 07:15 06/28/19 07:16 DC 06/28/19 07:23 60 MG (BARBARA CAMARGO MD) Vital Signs/I&O 06/28/19 06:25 Temp 36.2 Pulse 97 Resp 20 B/P (MAP) 135/81 (99) Pulse Ox 100 (BARBARA CAMARGO MD) Blood Pressure Mean: 99 POS Progress Progress Note : Time: 06:54 Progress Note seen and evaluated. DDX include atopic dermatitis, Contact dermatitis, insect bites, plant-induced reactions (e.g poison IV), and Erythema multiforme minor, Strep throat. will test for strep throat. Started a 1L of NS IVF, Increased dose of prednisone from 40mg to 60mg, gave famotidine, and diphenhydramine. Will mon itor response. (VIRGINIE LONG [facility]) Progress Note : Progress Note I have seen and evaluated the patient and agree with above except as indicated. I have directed the plan of care. IV, normal saline 1 L bolus, prednisone 60 mg by mouth, diphenhydramine 50 mg IV and famotidine 20 mg IV ordered. Monitor patient. 0835: Symptoms are improving. Pending completion of fluids. 0930: Overall much improved and hives have completely resolved on the legs and on the back. She still has a few areas on the arms. Is having no respiratory distress and overall feeling better. Discharged home with return precautions. Patient and family verbalize understanding of instructions and agreement with plan. (BARBARA CAMARGO MD) Departure Impression Primary Impression: Urticaria Disposition: 01 HOME, SELF-CARE Condition: Improved Departure-Patient Inst. Decision time for Depature: 08:38 (BARBARA CAMARGO MD) Referrals: NO,LOCAL PHYSICIAN (PCP/Family) Primary Care Physician Patient Instructions: Hives (DC), Anaphylaxis (DC) Add. Discharge Instructions: All discharge instructions reviewed with patient and/or family. Voiced understanding. Continue prednisone daily as prescribed but hold today's dose and restart tomorrow as you are given a dose in the emergency department. You should continue [id number] famotidine (Pepcid) 20 mg twice daily for the next 4 days. You may take Benadryl/diphenhydramine 25-50 mg every 6 hours as needed for itching or hives. This may make you drowsy so taken only if needed. Follow-up with your doctor on Sunday for recheck and further evaluation regarding the hives and also to discuss further what may be the cause of this. Return for increasing hives, breathing problems, abdominal pain or vomiting or generalized weakness or other concerns as needed. VIRGINIE LONG MED STUD Jun 28, 2019 07:42 BARBARA CERVANTES MD Jun 28, 2019 08:38 POS
[2019-06-28 09:59] VITALS: BP 135/81
== END 2019-06-28 09:59 | disposition home or self-care (01) ==
LOC: EDUNIT# 06:23 → ER 06:24
DX: L50.9 Urticaria, unspecified (principal); Z90.89 Acquired absence of other organs
CPT/HCPCS: 87430

== ENCOUNTER 2020-06-18 05:37 | Outpatient (RCR) | payer OTHER ==
[~2020-06-18] VITALS: Ht 167.7 cm; Wt 86.4 kg
== END 2020-06-18 12:17 | disposition home or self-care (01) ==
LOC: PREOP 05:37
PROVIDERS: ATTEND Obstetrics & Gynecology
DX: Z01.818 Encounter for other preprocedural examination (principal)

== ENCOUNTER 2020-06-25 11:30 | Day surgery (SDC) | payer OTHER ==
[~2020-06-25] VITALS: Ht 167.7 cm; Wt 86.4 kg
[2020-06-25] VITALS (12 sets, daily range): BP systolic 117–157; BP diastolic 66–99
[2020-06-25] MEDS ORDERED: LACTATED RINGERS 1,000 ML IV PRN (11:32)
[2020-06-25] MEDS ORDERED: metroNIDAZOLE 500MG/100ML IVPB 100 ML IV ONE (11:45)
[2020-06-25] MEDS ORDERED: ceFAZolin INJECTION 1,000 MG in WATER (STERILE) FOR INJECTION 10 ML IV ONE (11:45)
[2020-06-25] MEDS ORDERED: ROCURONIUM 10 MG/ML 5 ML SYRINGE IV ONE (11:48)
[2020-06-25] MEDS ORDERED: MIDAZOLAM 2 MG/2 ML (VERSED) VIAL ONE (11:48)
[2020-06-25] MEDS ORDERED: LIDOCAINE PF 2% 5 ML (XYLOCAINE) VIAL ONE (11:48)
[2020-06-25] MEDS ORDERED: ONDANSETRON 4 MG/2 ML (SDV) Z0FRAN ONE (11:48)
[2020-06-25] MEDS ORDERED: proPOfol 200 MG/20 ML (DIPRIVAN) VIAL IV ONE (11:48)
[2020-06-25] MEDS ORDERED: fentaNYL INJECTION 100 MCG/2 ML AMP ONE (11:48)
[2020-06-25] MEDS ORDERED: GLYCOPYRROLATE 0.2 MG/ML (ROBINUL) 2 ML VIAL ONE (11:49)
[2020-06-25] MEDS ORDERED: NEOSTIGMINE 3 MG/3 ML VIAL ONE (11:49)
[2020-06-25 12:23] LABS: BASOPHILS % (AUTO) 0 % (0-10); EOSINOPHILS # (AUTO) 0.4 10^3/uL (0.0-0.3); EOSINOPHILS % (AUTO) 4 % (0-10); HEMATOCRIT 41 % (35-52); HEMOGLOBIN 13.8 g/dL (11.5-16.0); LYMPHOCYTES # (AUTO) 2.9 10^3/uL (1.0-4.0); LYMPHOCYTES % (AUTO) 30 % (12-44); MEAN CORPUSCULAR HEMOGLOBIN 28 pg (25-34); MEAN CORPUSCULAR HGB CONC 34 g/dL (32-36); MEAN CORPUSCULAR VOLUME 82 fL (80-99); MEAN PLATELET VOLUME 10.7 fL (9.0-12.2); MONOCYTES # (AUTO) 0.5 10^3/uL (0.0-1.0); MONOCYTES % (AUTO) 6 % (0-12); NEUTROPHILS # (AUTO) 5.8 10^3/uL (1.8-7.8); NEUTROPHILS % (AUTO) 61 % (42-75); PLATELET COUNT 272 10^3/uL (130-400); WHITE BLOOD COUNT 9.7 10^3/uL (4.3-11.0)
[2020-06-25] MEDS ORDERED: METHYLENE BLUE 0.5% (PROVAYBLUE) 50 mg/10 ml vial IV ONE (12:23)
[2020-06-25] MEDS ORDERED: BUPIVACAINE 0.25% 30 ML (SENSORCAINE) VIAL ONE (12:23)
[2020-06-25] MEDS ORDERED: SEVOFLURANE (ULTANE) 15 ML INHAL SOLN ONE ×6 (13:01→15:04)
--- NOTE | 2020-06-25 13:08 | Progress Note-Pre Operative ---
Pre-Operative Progress Note H&P Reviewed The H&P was reviewed, patient examined and no changes noted. Date Seen by Provider: Jun 25, 2020 Time Seen by Provider: 13:00 Date H&P Reviewed: Jun 25, 2020 Time H&P Reviewed: 12:15 Pre-Operative Diagnosis: chronic pelvic pain, endometriosis ANJEL STERN DO Jun 25, 2020 13:08
[2020-06-25] MEDS ORDERED: HYDROmorphone 2 MG/ML VIAL (DILAUDID) ONE (13:37)
[2020-06-25] MEDS ORDERED: morphine INJ 10 MG/ML 1ML (SYR OR VIAL) IVP ONE (13:45)
[2020-06-25] MEDS ORDERED: HYDROmorphone 2 MG/ML VIAL (DILAUDID) IV ONE ×2 (13:45→15:30)
[2020-06-25] MEDS ORDERED: ONDANSETRON 4 MG/2 ML (SDV) Z0FRAN IVP PRN ×2 (13:45→15:30)
[2020-06-25] MEDS ORDERED: KETOROLAC 30 MG/ML VIAL IVP ONE (15:15)
[2020-06-25] MEDS ORDERED: ACETAMINOPHEN 500 MG TAB (TYLENOL) PO SCH (15:15)
--- NOTE | 2020-06-25 15:24 | Operative Report ---
Operative Report Date of Procedure/Surgery Jun 25, 2020 Surgeon (s) ANJEL STERN DO Anesthesiology Physician (s): Na Post-Operative Diagnosis stage 4 endometriosis, bilateral endometriomas, left solid ovarian cyst cervical stenosis, uterine perforation Procedure Performed Laparoscopy with lysis of adheisons, treatment of endometriomas, left ovarian cystectomy, cervical dilation resection of endometriosis Description of Procedure Anesthesia Type: General Estimated blood loss (mL): 150 Specimen(s) collected/removed peritoneal biopsies left ovarian cyst Description of the Procedure With informed consent the patient was taken to the operating room where general anesthesia was found to be adequate. She was placed in the dorsolithomy position and prepped and draped in the usual sterile fashion. The bladder was drained of clear, yellow urine with a straight catheter. The speculum was placed in the vagina. The anterior lip of the cervix was then grasped with a tenaculum. The cervix was noted to be completely closed/stenotic. I attempted to place the smallest of the Maikol dilators. This was not able to be placed, so I dilated with lacrimal dilators gently. Once I was able to place the maikol dilator, I gently dilated. At this point there was dark endometrial fluid noted to be coming from the cervix. The patient had not had menses this month and had 2 negative tests. I then placed a Kronner uterine manipulator and advanced this without difficulty. The balloon was inflated. Attention was then turned to the abdomen where the umbilicus was injected with 0.25% Marcaine and a 5 mm skin incision was made. The veress needle was inserted and intraabdominal placement was confirmed with a saline drop test and a drop in pressure. The 5 mm trocar was inserted under direct visualization with the Opti View. The abdomen was insufflated to a maximum pressure of 15 mmHg. Two additional 5 mm trocars were inserted in the left lower quadrant lateral to the rectus muscles and avoiding the inferior epigastric vessels. The above mentioned findings were seen. The kronner balloon had also perforated the posterior cervix/lower uterine segment. At the point of initial evaluation, it was not able to be determined whether there was any damage from the perforation but the balloon was easily seen. This was left to provide sotero pulation. there was no bleeding noted. Both ovaries were scarred to the posterior cul de sac and this was completely obliterated. There was a small amount of omentum noted to be adherent to the culdesac as well. After some dissection, there was also a loop of bowel noted to be adherent too. This was not dissected out. There were peritubal and periovarian adhesions noted as well, but both tubes were patent, but curved posteriorly covering the ovaries I gently dissected the ovaries out in a blunt and sharp fashion. As this was done, there was a large amount of endometriotic fluid noted in the culdesac. I then noted that there was a firm cyst noted on the left ovary (about 3 cm). The dissection of both ovaries took approximately 45 minutes. The harmonic scalpel was used to lyse the adhesions and control bleeding. I then dissected the firm left ovarian cyst with the Harmonic scalpel. Any bleeding was controlled with cautery. I then irrigated the pelvic copiously with sterile water. At this point, I extended the trocar site in the left lower quadrant to 12 mm and inserted the 12 mm trocar. I then removed the left ovarian cyst with the assistance of the Endocatch. Because of the uterine perforation, I did not feel that the chromotubation would be successful but both tubes appeared patent without scarring, once the dissection was completed. At this point, there was no active bleeding noted from the perforation site. It was small (> 10 mm in diameter). There was no evidence of any further damage. I did not dissect the small area of bowel that was adherent to the posterior culdesac. The instruments were removed from the abdomen. The fascial incision in the left lower quadrant was closed with a figure of eight stitch of 0 Vicryl. The skin incision was closed with 4-0 Monocryl in a subcuticular fashion. The other skin incisions were closed with Skin Affix. The instruments were removed from the vagina. There was minimal bleeding noted. The patient was awakened and taken to recovery in stable condition. Sponge, lap needle and instrument counts were correct times two. Findings of the Procedure completely obliterated culdesac with bilateral endometriomas, additional 3 cm firm ovarian cyst on the left ovary, tubes appeared patent cervical stenosis noted, perforation through the posterior cervix bowel adherent to the posterior uterus appendix appeared normal but with adhesions. Allergies and Home Medications Allergies Coded Allergies: cinnamon (Verified Allergy, Unknown, Hives, 06/28/19) Home Medications Acetaminophen 500 Mg Tablet, 1,000 MG PO Q8H Prescribed by: ANJEL STERN on 06/25/20 152 Elagolix Sodium 200 Mg Tablet, 200 MG PO BID Prescribed by: ANJEL STERN on 06/25/201528 Ibuprofen 600 Mg Tablet, 600 MG PO Q6HR Prescribed by: ANJEL STERN on 06/25/201528 Oxycodone Hcl 5 Mg Tab, 5 MG PO Q4H PRN for PAIN-SEVERE (8-10) Prescribed by: ANJEL STERN on 06/25/201528 Patient Home Medication List Home Medication List Reviewed: Yes ANJEL STERN DO Jun 25, 2020 15:24
--- NOTE | 2020-06-25 15:26 | Discharge Inst-Simple/Standard ---
Discharge Inst-Standard Reconcile Patient Problems Problems Reviewed?: Yes Discharge Medications New, Converted or Re-Newed RX: Other (on chart and sent to [facility] (Orilissa)) Patient Instructions/Follow Up Plan of Care/Instructions/FU: Start orilissa twice daily to allow pelvis to heal and suppress uterine lining and ovulation Rx given for 1 month. then can attempt . Activity as Tolerated: Yes (no driving for 24 hours; nothing in the vagina for 1 week) Discharge Diet: No Restrictions Return to The Hospital For: bleeding greater than 1 pad per hour, fever, bowel problems (persistent constipation) Planned Outpatient Orders/Ref. follow up with Dr. Stern in 1 week Rx for Orilissa sent to [facility]. Start this as soon as able. ANJEL STERN DO Jun 25, 2020 15:26
[2020-06-25] MEDS ORDERED: ELAG200T PO (15:29)
[2020-06-25] MEDS ORDERED: ACET-93 PO (15:29)
[2020-06-25] MEDS ORDERED: OXC5T PO (15:29)
[2020-06-25] MEDS ORDERED: IBUP-844 PO (15:29)
[2020-06-25] MEDS ORDERED: oxyCODONE/APAP 5/325MG (PERCOCET 5) TABLET ONE (16:25)
[2020-06-25] MEDS ORDERED: oxyCODONE/APAP 5/325MG (PERCOCET 5) TABLET PO PRN (16:45)
[2020-06-25] MEDS ORDERED: IBUPROFEN 600 MG (MOTRIN) TAB PO SCH (18:00)
--- NOTE | 2020-06-29 08:11 | Anesthesia-General Post-Op ---
General Patient Condition Mental Status/LOC: Same as Preop Cardiovascular: Satisfactory Nausea/Vomiting: Absent Respiratory: Satisfactory Pain: Controlled Complications: Absent Post Op Complications Complications None Follow Up Care/Instructions Patient Instructions None needed. Anesthesia/Patient Condition Patient Condition Patient is doing well, no complaints, stable vital signs, no apparent adverse anesthesia problems. No complications reported per nursing. D/C home per [facility] Criteria: Yes DANAY ALCARAZ CRNA Jun 29, 2020 08:11
== END 2020-06-25 17:20 | disposition home or self-care (01) ==
LOC: SDC 11:30
PROVIDERS: ATTEND Obstetrics & Gynecology
DX: N80.1 Endometriosis of ovary (principal); N83.202 Unspecified ovarian cyst, left side; N88.2 Stricture and stenosis of cervix uteri; K21.9 Gastro-esophageal reflux disease without esophagitis; E66.9 Obesity, unspecified; Z68.30 Body mass index [BMI] 30.0-30.9, adult; Z79.899 Other long term (current) drug therapy; Z91.018 Allergy to other foods; Z20.828 Contact with and (suspected) exposure to other viral communicable diseases; Z80.3 Family history of malignant neoplasm of breast
CPT/HCPCS: 58662; 84703; 85025; 87081; 88305; U0002; 36415; 87635